=== PATIENT | female | born 1965 | race Caucasian/White ===

== ENCOUNTER → 2018-04-01 | Outpatient (CLI) | payer OTHER | LOC: M.RAD 03-30 09:00 | DX: Z12.31 Encounter for screening mammogram for malignant neoplasm of breast (principal) ==

== ENCOUNTER → 2018-04-09 | Outpatient (CLI) | payer OTHER | LOC: M.RAD 12:40 | DX: N63.20 Unspecified lump in the left breast, unspecified quadrant (principal); R92.8 Other abnormal and inconclusive findings on diagnostic imaging of breast ==